=== PATIENT | male | born 1940 | race Caucasian/White ===

== ENCOUNTER 2021-02-16 10:59 | Inpatient (IN) ==
[2021-02-16 11:56] LABS: Basophils % 0.6 %; Eosinophils % 0.1 %; Hematocrit 39.6 % (37.5-50.1); Hemoglobin 12.8 g/dL (12.9-16.9); Immature Granulocytes % 0.4 % (0-4); Lymphocytes # 1.5 K/mcL (0.6-4.6); Mean Corpuscular HGB Conc 32.3 g/dL (31.6-35.5); Mean Corpuscular Hemoglobin 31.2 pg (28.0-33.3); Mean Corpuscular Volume 96.6 fL (83.0-100.0); Monocytes # 0.7 K/mcL (0.0-1.3); Monocytes % 9.7 %; Neutrophils # 4.6 K/mcL (1.6-8.9); Platelet Count 156 K/mcL (140-400); Red Cell Distribution Width 13.2 % (11.5-14.5); Segmented Neutrophils % 67.2 %; White Blood Count 6.9 K/mcL (4.3-11.1)
[2021-02-16 12:18] LABS: Alanine Aminotransferase 4 Units/L (7-52); Albumin 4.1 g/dL (3.5-5.7); Albumin/Globulin Ratio 1.6 (1.1-2.2); Alkaline Phosphatase 65 Units/L (34-104); Aspartate Amino Transferase 20 Units/L (13-39); BUN/Creatinine Ratio 15 (6-26); Bilirubin,Direct 0.8 mg/dL (0.0-0.2); Bilirubin,Total 1.8 mg/dL (0.3-1.0); Blood Urea Nitrogen 30 mg/dL (8-23); Calcium 9.4 mg/dL (8.6-10.3); Carbon Dioxide 25 mEq/L (23-29); Chloride 105 mEq/L (98-107); Creatine Kinase 218 Units/L (30-223); Ethanol < 10 mg/dL (Less than 10); Globulin 2.6 g/dL (2.4-3.5); Glucose 110 mg/dL (70-105); Osmolality,Calculated 297 (280-300); Sodium 140 mEq/L (136-145); Total Protein 6.7 g/dL (6.4-8.9); Troponin I < 0.03 ng/mL (< 0.04); eGFR For African Americans 40 (> 60); eGFR For Non-African Americans 33 (> 60)
[2021-02-16 12:42] LABS: INR 1.3; Prothrombin Time 14.8 Seconds (9.4-12.1)
[2021-02-16 13:46] LABS: Bilirubin,Urine Small (Negative); Blood,Urine Negative (Negative); Clarity,Urine Clear (Clear); Color,Urine Yellow (Yellow); Glucose,Urine (UA) Normal (Normal); Ketones,Urine 20 mg/dL (Negative); Leukocyte Esterase,Urine Negative (Negative); Nitrite,Urine Negative (Negative); PH,Urine 5.5 pH Units (5.0-8.0); Protein,Urine Trace mg/dL (Neg-Trace); Specific Gravity,Urine 1.029 (1.010-1.025); Urobilinogen,Urine >=8.0 mg/dL (Normal)
[2021-02-16 13:59] LABS: Amphetamine Screen,Urine Negative ng/mL (Cutoff=1000); Barbiturate Screen,Urine Negative ng/mL (Cutoff=200); Benzodiazepines Screen,Urine Positive ng/mL (Cutoff=200); Cannabinoid Screen,Urine Negative ng/mL (Cutoff = 50); Cocaine Screen,Urine Negative ng/mL (Cutoff= 300); Opiate Screen,Urine Positive ng/mL (Cutoff=300); Phencyclidine Screen,Urine Negative ng/mL (Cutoff=25)
[2021-02-16] MEDS ORDERED: Naloxone 0.4 MG/ML INJ IVP PRN (14:18)
[2021-02-16] MEDS ORDERED: *HR* LORazepam 2 MG/ML VIAL IVP PRN (14:22)
[2021-02-16] MEDS ORDERED: *HR* LORazepam 0.5 MG TABLET PO SCH (15:00)
[2021-02-16] MEDS: *HR* LORazepam 0.5 MG TABLET PO SCH ×2 (15:56→20:07)
[2021-02-16] MEDS: *HR* LORazepam 2 MG/ML VIAL IVP PRN (16:30)
[2021-02-16] MEDS ORDERED: Ziprasidone 10 MG, Closed System Device IM Kit 1 EACH in Water for inj. (sterile) 0.5 ML IM ONE (16:55)
[2021-02-16] MEDS ORDERED: Morphine Sulfate 2 MG/ML SYRINGE IVP ONE (16:56)
[2021-02-16] MEDS: *HR* OxyCODONE/APAP 5/325 TABLET PO SCH ×2 (17:31→23:50)
[2021-02-16] MEDS: Morphine Sulfate ER (12 HR) 15 MG TABLET.ER PO SCH (17:31)
[2021-02-16] MEDS: Dexmedetomidine HCl 400 MCG/100 ML MLS IVC SCH ×2 (18:48→22:00)
[2021-02-16] MEDS: QUEtiapine Fumarate 25 MG TABLET PO SCH (20:07)
[2021-02-17] MEDS: Morphine Sulfate ER (12 HR) 15 MG TABLET.ER PO SCH ×2 (04:50→16:58)
[2021-02-17] MEDS: *HR* OxyCODONE/APAP 5/325 TABLET PO SCH ×4 (04:50→23:52)
[2021-02-17] MEDS: *HR* LORazepam 0.5 MG TABLET PO SCH ×3 (09:23→19:56)
[2021-02-17] MEDS: QUEtiapine Fumarate 25 MG TABLET PO SCH (10:29)
[2021-02-17] MEDS: Erythromycin OPTH Oint RIGHT EYE SCH ×3 (10:43→20:04)
[2021-02-17] MEDS: 0.9 % Sodium Chloride 500 ML IVC SCH (10:44)
[2021-02-17] MEDS: Dexmedetomidine HCl 400 MCG/100 ML MLS IVC SCH (23:41)
[2021-02-18 02:38] LABS: Basophils # 0.1 K/mcL (0.0-0.2); Basophils % 0.8 %; Eosinophils # 0.1 K/mcL (0.0-0.6); Eosinophils % 1.7 %; Hematocrit 40.7 % (37.5-50.1); Hemoglobin 13.2 g/dL (12.9-16.9); Immature Granulocytes % 0.6 % (0-4); Lymphocytes # 1.9 K/mcL (0.6-4.6); Lymphocytes % 30.7 %; Mean Corpuscular HGB Conc 32.4 g/dL (31.6-35.5); Mean Corpuscular Hemoglobin 31.5 pg (28.0-33.3); Mean Corpuscular Volume 97.1 fL (83.0-100.0); Mean Platelet Volume 10.5 fL (9.4-12.4); Monocytes # 0.7 K/mcL (0.0-1.3); Monocytes % 11.3 %; Neutrophils # 3.5 K/mcL (1.6-8.9); Platelet Count 149 K/mcL (140-400); Red Blood Count 4.19 M/mcL (4.19-5.50); Red Cell Distribution Width 13.2 % (11.5-14.5); Segmented Neutrophils % 54.9 %; White Blood Count 6.3 K/mcL (4.3-11.1)
[2021-02-18 02:58] LABS: BUN/Creatinine Ratio 22 (6-26); Blood Urea Nitrogen 28 mg/dL (8-23); Calcium 8.8 mg/dL (8.6-10.3); Carbon Dioxide 22 mEq/L (23-29); Chloride 108 mEq/L (98-107); Glucose 91 mg/dL (70-105); Osmolality,Calculated 295 (280-300); Potassium 4.1 mEq/L (3.5-5.1); Sodium 140 mEq/L (136-145); eGFR For African Americans > 60 (> 60); eGFR For Non-African Americans 53 (> 60)
[2021-02-18] MEDS: *HR* OxyCODONE/APAP 5/325 TABLET PO SCH ×5 (05:33→23:34)
[2021-02-18] MEDS: Morphine Sulfate ER (12 HR) 15 MG TABLET.ER PO SCH ×3 (05:33→20:48)
[2021-02-18] MEDS: *HR* LORazepam 0.5 MG TABLET PO SCH ×3 (09:38→20:48)
[2021-02-18] MEDS: 0.9 % Sodium Chloride 500 ML IVC SCH (09:38)
[2021-02-18] MEDS: Erythromycin OPTH Oint RIGHT EYE SCH ×3 (09:39→20:48)
[2021-02-18] MEDS: Dexmedetomidine HCl 400 MCG/100 ML MLS IVC SCH (14:35)
[2021-02-18] MEDS: *HR* LORazepam 2 MG/ML VIAL IVP PRN (22:25)
[2021-02-19] MEDS: Dexmedetomidine HCl 400 MCG/100 ML MLS IVC SCH ×4 (01:31→21:53)
[2021-02-19 03:43] LABS: Basophils # 0.1 K/mcL (0.0-0.2); Basophils % 1.1 %; Eosinophils # 0.1 K/mcL (0.0-0.6); Eosinophils % 1.2 %; Hematocrit 42.9 % (37.5-50.1); Hemoglobin 14.2 g/dL (12.9-16.9); Immature Granulocytes % 0.4 % (0-4); Lymphocytes # 2.4 K/mcL (0.6-4.6); Lymphocytes % 31.3 %; Mean Corpuscular HGB Conc 33.1 g/dL (31.6-35.5); Mean Corpuscular Hemoglobin 31.4 pg (28.0-33.3); Mean Corpuscular Volume 94.9 fL (83.0-100.0); Mean Platelet Volume 10.7 fL (9.4-12.4); Monocytes # 0.7 K/mcL (0.0-1.3); Monocytes % 9.7 %; Neutrophils # 4.3 K/mcL (1.6-8.9); Platelet Count 161 K/mcL (140-400); Red Blood Count 4.52 M/mcL (4.19-5.50); Red Cell Distribution Width 12.8 % (11.5-14.5); Segmented Neutrophils % 56.3 %; White Blood Count 7.6 K/mcL (4.3-11.1)
[2021-02-19] MEDS: *HR* OxyCODONE/APAP 5/325 TABLET PO SCH ×3 (06:27→18:20)
[2021-02-19] MEDS: Morphine Sulfate ER (12 HR) 15 MG TABLET.ER PO SCH ×2 (07:34→19:19)
[2021-02-19] MEDS: *HR* LORazepam 0.5 MG TABLET PO SCH ×3 (07:34→19:19)
[2021-02-19] MEDS: Erythromycin OPTH Oint RIGHT EYE SCH ×3 (07:38→19:20)
[2021-02-19] MEDS: 0.9 % Sodium Chloride 500 ML IVC SCH (11:50)
[2021-02-19] MEDS ORDERED: *HR* LORazepam 2 MG/ML VIAL IM PRN (18:53)
[2021-02-19] MEDS ORDERED: QUEtiapine Fumarate 25 MG TABLET PO ONE (21:00)
[2021-02-19] MEDS ORDERED: QUEtiapine Fumarate 25 MG TABLET PO SCH (21:00)
[2021-02-19] MEDS: *HR* LORazepam 2 MG/ML VIAL IVP PRN (21:31)
[2021-02-20] MEDS: *HR* OxyCODONE/APAP 5/325 TABLET PO SCH ×2 (00:06→04:32)
[2021-02-20] MEDS: Dexmedetomidine HCl 400 MCG/100 ML MLS IVC SCH (02:25)
[2021-02-20] MEDS: *HR* LORazepam 2 MG/ML VIAL IVP PRN ×5 (03:51→23:44)
[2021-02-20] MEDS ORDERED: QUEtiapine Fumarate 25 MG TABLET PO SCH (09:00)
[2021-02-20] MEDS: Morphine Sulfate ER (12 HR) 15 MG TABLET.ER PO SCH (10:07)
[2021-02-20] MEDS: Erythromycin OPTH Oint RIGHT EYE SCH ×2 (10:07→14:10)
[2021-02-20] MEDS: *HR* LORazepam 0.5 MG TABLET PO SCH ×2 (10:07→13:52)
[2021-02-20] MEDS: 0.9 % Sodium Chloride 500 ML IVC SCH (12:59)
[2021-02-20] MEDS: Morphine Sulfate Oral CONC 10 MG/0.5 ML ORAL.SYG SL PRN ×3 (17:01→23:43)
[2021-02-20] MEDS: Haloperidol Oral Conc 10 MG/5 ML UDC PO PRN (22:08)
[2021-02-21] MEDS: *HR* LORazepam 0.5 MG TABLET PO SCH ×2 (00:08→07:49)
[2021-02-21] MEDS: Erythromycin OPTH Oint RIGHT EYE SCH ×4 (01:00→23:27)
[2021-02-21] MEDS: Morphine Sulfate Oral CONC 10 MG/0.5 ML ORAL.SYG SL PRN ×7 (01:47→23:01)
[2021-02-21] MEDS: *HR* LORazepam 2 MG/ML VIAL IVP PRN ×8 (01:48→23:01)
[2021-02-21] MEDS: Haloperidol Oral Conc 10 MG/5 ML UDC PO PRN (03:27)
[2021-02-21] MEDS ORDERED: Atropine 1% Opth Drops 100 DROP/5 ML BOTTLE SL PRN (13:56)
[2021-02-21 18:57] VITALS: PULSE 91; TEMP 98.5; O2SAT 93
[2021-02-22] MEDS: *HR* LORazepam 2 MG/ML VIAL IVP PRN ×3 (02:52→09:55)
[2021-02-22] MEDS: Morphine Sulfate Oral CONC 10 MG/0.5 ML ORAL.SYG SL PRN ×3 (02:53→13:26)
[2021-02-22 05:16] VITALS: BP 110/87
[2021-02-22] MEDS: Erythromycin OPTH Oint RIGHT EYE SCH (09:55)
[2021-02-22] MEDS ORDERED: *HR* LORazepam Oral Conc 2 MG/ML PO PRN (12:05)
[2021-02-22] MEDS ORDERED: Scopolamine Patch 1.5 MG PATCH.TD72 TD SCH (12:15)
== END 2021-02-22 13:55 | disposition hospice, home (50) | DRG 57 ==
LOC: 3ANU 10:59 → EMEROOARM 10:59 → SUATTDRO 14:27 → 3ANU 15:21 → ICNU 18:47 → 2NNU 02-17 16:14 → 2ANU 02-20 12:56
PROVIDERS: ADMIT Pharmacist; ATTEND Student in an Organized Health Care Education/Training Program